=== PATIENT | male | born 1955 | race Caucasian/White ===

== ENCOUNTER → 2017-06-13 | Day surgery (SDC) | payer OTHER ==
[~2017-06-13] VITALS: Ht 175.3 cm; Wt 69.0 kg
[~2017-06-13] MED LIST: ASCORBIC ACID500 MG PO; CALCIUM + VITA1 EACH PO; CINNAMON500 MG; K-TAB ER20 MEQ PO; LASIX20 MG PO; OXYGEN M-15 INH; THERA-VITE W/ B1 TAB PO; TOUJEO SOL300 UNIT/1 SUB-Q; TRAMADOL HCL50 MG PO
== END ==
LOC: GPOC 06-11 16:00 → GEND 07:11 → GPOC 07:30
PROC: 0DB58ZX Excision of Esophagus, Via Natural or Artificial Opening Endoscopic, Diagnostic (ICD-10-PCS; principal; 2017-06-13)
PROC: 0DBN8ZX Excision of Sigmoid Colon, Via Natural or Artificial Opening Endoscopic, Diagnostic (ICD-10-PCS; 2017-06-13)
PROC: 0DBP8ZX Excision of Rectum, Via Natural or Artificial Opening Endoscopic, Diagnostic (ICD-10-PCS; 2017-06-13)
DX: Z12.11 Encounter for screening for malignant neoplasm of colon (principal); D12.5 Benign neoplasm of sigmoid colon; D12.8 Benign neoplasm of rectum; B37.81 Candidal esophagitis; K74.60 Unspecified cirrhosis of liver; K31.9 Disease of stomach and duodenum, unspecified; J44.9 Chronic obstructive pulmonary disease, unspecified; Z88.0 Allergy status to penicillin; Z88.1 Allergy status to other antibiotic agents; Z88.2 Allergy status to sulfonamides; E11.9 Type 2 diabetes mellitus without complications; Z79.899 Other long term (current) drug therapy; Z79.891 Long term (current) use of opiate analgesic; Z98.890 Other specified postprocedural states; Z98.41 Cataract extraction status, right eye; Z98.42 Cataract extraction status, left eye
CPT/HCPCS: J2001; J7030